=== PATIENT | female | born 1950 ===

== ENCOUNTER 2018-11-25 18:33 | Emergency (ER) | payer MEDICARE, OTHER ==
[2018-11-25 18:40] VITALS: TEMP 98.3; BMI 24.0
[2018-11-25] MEDS ORDERED: diphenhydrAMINE HCL 25 MG CAPSULE (FP) PO ONE (18:58)
[2018-11-25] MEDS ORDERED: predniSONE 20 MG TABLET (UD) PO ONE (18:58)
[2018-11-25] MEDS ORDERED: diphenhydrAMINE HCL 50 MG CAPSULE ONE (18:59)
[2018-11-25] MEDS ORDERED: predniSONE 20 MG TABLET (UD) ONE (18:59)
--- NOTE | 2018-11-25 19:19 | PDOC ---
Documentation entered by Ashley Moffett SCRIBE, acting as scribe for Jovi Bowden MD. Jovi Bowden MD: This documentation has been prepared by the scribeZuhair Lincy, SCRIBE, under my direction and personally reviewed by me in its entirety. I confirm that the documentation accurately reflects all work, treatment, procedures, and medical decision making performed by me. History of Present Illness - General Chief Complaint: Allergic Reaction Stated Complaint: ALLERGIC REACTION History Source: Patient Exam Limitations: No Limitations - History of Present Illness Initial Comments: 11/25/18 19:05 The patient is 68-year-old female with a past medical history significant for HLD, Acid reflux, Cerebral aneurysm, CVA and hx of seizures (used to be on antiepileptic medication and was d/c'ed off) presents to the emergency department s/p an allergic reaction. The patient presents with swelling surrounding bilateral eyes and face, associated with an itchy rash to the neck and arms, that presented last night. 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 The daughter at the bedside indicates she's been compliant with Benadryl , with improvement to the swelling. Denies difficulty breathing, tongue swelling , difficulty speaking, chest pain, nausea, vomiting, diarrhea, new rashes or hives. Denies lightheadedness, voice change, SOB, cough, wheezing. Denies swelling inside the mouth. 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 Social history: Former smoker (quit 3 months [employer]), denies the use of alcohol or recreational drugs. Past History - Past Medical History Allergies/Adverse Reactions: Allergies Allergy/AdvReac Type Severity Reaction Status Date / Time apricot Allergy Verified 11/25/18 18:52 doan Allergy Verified 11/25/18 18:52 peach Allergy Verified 11/25/18 18:36 nectarine Allergy Uncoded 11/25/18 18:52 Home Medications: Ambulatory Orders EPINEPHrine [Epinephrine] 0.3 mg IJ PRN PRN #1 auto.injct 11/25/18 Rosuvastatin Calcium [Crestor] 20 mg PO DAILY 11/25/18 Sertraline HCl [Zoloft] 100 mg PO DAILY 11/25/18 predniSONE [Deltasone -] 40 mg PO DAILY #8 tablet 11/25/18 Cardiac Disorders: Yes COPD: No GI Disorders: Yes (ACID REFLUX) Hypercholesterolemia: Yes - Suicide/Smoking/Psychosocial Hx Smoking History: Former smoker Have you smoked in the past 12 months: Yes Number of Cigarettes Smoked Daily: 10 If you are a former smoker, 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 denies vision changes, sore throat. Respiratory: Denies cough, sob, hemoptysis Cardiac: denies chest pain, palpitations, lightheadedness, leg swelling Abd/GI: denies abd pain, nausea, vomiting, blood per rectum, melena, diarrhea : denies dysuria, frequency, discharge Musculoskeletal - denies back pain, joint swelling skin - +itchy rash to the neck and arms. denies bruising, erythema, rash neurological: denies headache, numbness, focal weakness, tingling, ataxia, weakness hematologic: denies anemia, easy bruising, easy bleeding *Physical Exam - Vital Signs Last Vital Signs Temp Pulse Resp BP Pulse Ox 98.3 F 71 18 134/78 98 11/25/18 18:33 11/25/18 18:33 11/25/18 18:33 11/25/18 18:33 11/25/18 18:33 - Physical Exam Comments: 11/25/18 19:04 GENERAL: The patient is awake, alert, and fully oriented, Nontoxic - in no acute distress. HEAD: Normocephalic, atraumatic. EYES: +moderate periorbital swelling. extraocular movements intact, sclera anicteric, conjunctiva clear. ENT: airway patent without swelling, no tongue swelling or lip swelling. Normal voice, Moist mucous membranes. No stridor. NECK: Normal range of motion, supple without lymphadenopathy, JVD, or masses. LUNGS: Breath sounds equal, clear to auscultation bilaterally. No wheezes, no crackles, no rales. HEART: Regular rate and rhythm, normal S1 and S2 without murmur, rub or gallop. ABDOMEN: Soft, nontender, No guarding, no rebound. No masses. EXTREMITIES: Normal range of motion. NEUROLOGICAL: No facial asymmetry, Normal speech, normal gait. PSYCH: Normal mood, normal affect. SKIN: +urticaria on the arms and neck. Warm, Dry, normal turgor, no new rash or lesions note Medical Decision Making - Medical Decision Making 11/25/18 19:01 68y F hx of allergy to stone fruits presents with complaint of facial swelling/ itching since last night after coming into contact with unclear trigger. pt has been usinb enadryl with some improvement. no pulm/abd complaints. on exam - no signs of airway invomemnt +perioral edema and urticaria will treat with prednisone and beandryl will give pt epipend due to severity of her allergy (in the past doctors were concerning cric) 11/25/18 19:57 pt donig well. facials weling improved airway stable/normal will dc wit pmd fu return precautiosn were discussed *DC/Admit/Observation/Transfer Diagnosis at time of Disposition: Allergic reaction Qualifiers: Encounter type: initial encounter Qualified Code(s): T78.40XA - Allergy, unspecified, initial encounter Angioedema Qualifiers: Encounter type: initial encounter Qualified Code(s): T78.3XXA - Angioneurotic edema, initial encounter - Discharge Dispostion Disposition: HOME Condition at time of disposition: Improved Decision to Admit order: No - Prescriptions Prescriptions: EPINEPHrine [Epinephrine] 0.3 mg IJ PRN PRN #1 auto.injct PRN Reason: Allergies predniSONE [Deltasone -] 40 mg PO DAILY #8 tablet - Referrals Referrals: [facility] [Provider Group] - Patient Instructions Printed Discharge Instructions: DI for General Allergic Reactions Additional Instructions: Return to the emergency department immediately with ANY new, persistent or worsening symptoms including worsening swelling, difficulty breathing or swallowing or other concerns. Take the prednisone as prescribed Take benadryl for th eitching. You MUST call and follow up with your doctor in 3-4 days for further evaluation of your symptoms. Results were discussed with you. Please make sure your doctor reviews the results of your emergency evaluation. Print Language: YAKUT - Post Discharge Activity
[2018-11-25 20:18] VITALS: BP 130/71; PULSE 73
== END 2018-11-25 20:12 | disposition home or self-care (01) ==
LOC: FER 18:33
DX: T78.40XA Allergy, unspecified, initial encounter (principal); T78.3XXA Angioneurotic edema, initial encounter; X58.XXXA Exposure to other specified factors, initial encounter; E78.5 Hyperlipidemia, unspecified; K21.9 Gastro-esophageal reflux disease without esophagitis; Z86.79 Personal history of other diseases of the circulatory system; Z86.73 Personal history of transient ischemic attack (TIA), and cerebral infarction without residual deficits; Z87.891 Personal history of nicotine dependence; Z86.69 Personal history of other diseases of the nervous system and sense organs
CPT/HCPCS: 99283-25